=== PATIENT | female | born 1955 | race Caucasian/White ===

== ENCOUNTER 2019-08-31 08:14 | Observation (INO) | payer OTHER ==
[~2019-08-31] VITALS: Ht 167.6 cm; Wt 68.9 kg
[2019-08-31] MEDS ORDERED: SODIUM CHLORIDE 0.9% 1000ML 1,000 ML IV STA (08:32)
[2019-08-31 09:06] LABS: BASOPHILS % 0.8 % (0.0-1.0); EOSINOPHILS # (AUTO) 0.1 (0.0-0.4); EOSINOPHILS % 2.4 % (0.0-6.0); HEMATOCRIT 44.4 % (34.2-44.1); HEMOGLOBIN 14.6 g/dL (12.0-16.0); LYMPHOCYTES # (AUTO) 1.6 (1.0-3.2); LYMPHOCYTES % 29.9 % (18.0-39.1); MEAN CORPUSCULAR HEMOGLOBIN 31.1 pg (28-32); MEAN CORPUSCULAR HGB CONC 32.9 g/dL (31-35); MEAN CORPUSCULAR VOLUME 94.7 fL (81-99); MONOCYTES # (AUTO) 0.4 (0.2-0.8); MONOCYTES % 7.9 % (4.4-11.3); NEUTROPHILS # (AUTO) 3.1 (2.1-6.9); NEUTROPHILS % 58.6 % (38.7-80.0); PLATELET COUNT 274 x10e3/uL (140-360); RED BLOOD COUNT 4.69 x10e6/uL (3.6-5.1)
--- NOTE | 2019-08-31 09:15 | Diagnostic Imaging Report ---
EXAM: CHEST SINGLE (PORTABLE) DATE: 08/31/2019 8:45 AM INDICATION: Left-sided numbness COMPARISON: None FINDINGS: The trachea is midline. The lungs are symmetrically expanded without evidence for large focal consolidation, pneumothorax, or significant pleural effusion. The cardiomediastinal silhouette and pulmonary vasculature are within normal limits. No acute osseous abnormality is identified. The surrounding soft tissues are unremarkable. IMPRESSION: No acute cardiopulmonary process identified. Signed by: Dr. Boone Ibrahim MD on 08/31/2019 9:12 AM
--- NOTE | 2019-08-31 09:16 | Diagnostic Imaging Report ---
Exam: Head CT without contrast History: Numbness on left side Comparison studies: None Technique: Axial images were obtained from the skull base to the vertex. Coronal and sagittal images reconstructed from the axial data. Dose modulation, iterative reconstruction, and/or weight based adjustment of the mA/kV was utilized to reduce the radiation dose to as low as reasonably achievable. Radiation dose: Total DLP: 921.4 mGy*cm. Estimated effective dose: DLP x 0.015 Intravenous contrast: None Findings: Scalp: No abnormalities. Bones: No fractures, blastic or lytic lesions. Brain sulci: Appropriate for age. Ventricles: Normal in size and configuration. No hydrocephalus. Extra-axial spaces: No masses, no fluid collection. Parenchyma: Focal loss of carbajal-white differentiation along the right precentral gyrus (lateral to the hand knob) compatible with age-indeterminate nonhemorrhagic infarct. No mass or acute hemorrhage. Sellar/suprasellar region: No abnormalities. Craniocervical junction: Patent foramen magnum. No Chiari one malformation. Incidental findings: Atherosclerotic calcifications in the carotid siphons.. IMPRESSION: 1. Age-indeterminate nonhemorrhagic right precentral gyrus infarct, possibly acute or subacute in the context of recent left-sided localizing neurologic symptoms. Brain MRI may further evaluate. 2. No other acute intracranial abnormalities. Signed by: Dr. Logan Valdez M.D. on 08/31/2019 9:13 AM
[2019-08-31 09:30] LABS: ALANINE AMINOTRANSFERASE 22 IU/L (0-55); ALBUMIN 3.9 g/dL (3.5-5.0); ALBUMIN/GLOBULIN RATIO 1.1 (0.8-2.0); ALKALINE PHOSPHATASE 84 IU/L (40-150); ANION GAP 11.8 mmol/L (8-16); BLOOD UREA NITROGEN 6 mg/dL (7-26); BUN/CREATININE RATIO 8 (6-25); CALCIUM 9.3 mg/dL (8.4-10.2); CARBON DIOXIDE 27 mmol/L (22-29); CHLORIDE 106 mmol/L (98-107); CREATINE KINASE 65 IU/L (29-168); CREATININE, SERUM 0.78 mg/dL (0.57-1.11); EST GLOMERULAR FILTRATION RATE > 60 ML/MIN (60-); GLUCOSE 91 mg/dL (74-118); POTASSIUM 3.8 mmol/L (3.5-5.1); SODIUM 141 mmol/L (136-145)
[2019-08-31] MEDS ORDERED: ASPIRIN 81 MG CHEW TAB PO STA (09:59)
[2019-08-31 10:01] LABS: INR 0.83; PROTHROMBIN TIME 11.9 seconds (11.9-14.5)
[2019-08-31 10:02] LABS: PARTIAL THROMBOPLASTIN TIME 26.1 seconds (23.8-35.5)
--- NOTE | 2019-08-31 10:13 | Emergency Department Note ---
History of Present Illnes History of Present Illness Chief Complaint: Neurological History of Present Illness This is a 64 year old female PATIENT IN FROM HOME WITH COMPLAINTS OF LEFT SIDED FACIAL NUMBNESS AND WEAKNESS STARTING YESTERDAY, PATIENT ALSO STATES THAT SHE HAS HAD DIFFICULTY WRITING WITH LEFT HAND X 1 WEEK. PATIENT DENIES PAIN, APPEARS IN NO DISTRESS, RESP EVEN AND NONLABORED, AMBULATORY WITHOUT ASSISTANCE, LEFT SIDED WEAKNESS NOTED IN TRIAGE. Historian: Patient Arrival Mode: Car Bobbin Washer Required: No Onset (how long ago): week(s) (1 WEEK OF LEFT HAND WEAKNESS, FACIAL DROOP STARTED YESTERDAY) Location: LEFT SIDE Quality: WEAK/NUMB Radiation: Reports non-radiation Severity: moderate Onset quality: gradual Timing of current episode: constant Progression: worsening Chronicity: new Context: Denies recent illness Relieving factors: none Exacerbating factors: none Associated symptoms: Reports denies other symptoms Treatments prior to arrival: none Past Medical/Family History Physician Review I have reviewed the patient's past medical and family history. Any updates have been documented here. Past Medical History Recent Fever: No Clinical Suspicion of Infectio: No New/Unexplained Change in Ment: No Past Medical History: Migraines Past Surgical History: Cholecysctectomy, Hysterectomy Social History Smoking Cessation: Current every day smoker Counseling Performed: Yes Alcohol Use: None Any Illegal Drug Use: No TB Exposure/Symptoms: No Physically hurt or threatened: No Family History Family history of heart diseas: No Other Last Tetanus: AUGUST 2019 Any Pre-Existing Lines (PICC,: No Is patient up to date on immun: Yes Last Flu: UTD Last Pneumovax: UTD Review of Systems Review of Systems Constitutional: Reports no symptoms EENTM: Reports no symptoms Cardiovascular: Reports no symptoms Respiratory: Reports no symptoms Gastrointestinal: Reports no symptoms Genitourinary: Reports no symptoms Musculoskeletal: Reports no symptoms Integumentary: Reports no symptoms Neurological: Reports as per HPI Psychological: Reports no symptoms Endocrine: Reports no symptoms Hematological/Lymphatic: Reports no symptoms Physical Exam Related Data Allergies: Coded Allergies: Penicillins (Verified Allergy, Mild, RASH, 08/31/19) Triage Vital Signs Vital Signs Date Time Temp Pulse Resp B/P (MAP) Pulse Ox O2 Delivery O2 Flow Rate FiO2 08/31/19 08:23 97.7 88 18 143/89 100 Vital signs reviewed: Yes Physical Exam CONSTITUTIONAL Constitutional: Present well-developed, Present well-nourished HENT HENT: Present normocephalic, Present atraumatic, Present oropharynx clear/moist, Present nose normal HENT L/R: Present left ext ear normal, Present right ext ear normal EYES Eyes: Reports PERRL, Reports conjunctivae normal NECK Neck: Present ROM normal PULMONARY Pulmonary: Present effort normal, Present breath sounds normal CARDIOVASCULAR Cardiovascular: Present regular rhythm, Present heart sounds normal, Present capillary refill normal, Present normal rate GASTROINTESTINAL Abdominal: Present soft, Present nontender, Present bowel sounds normal GENITOURINARY Genitourinary: Present exam deferred SKIN Skin: Present warm, Present dry MUSCULOSKELETAL Musculoskeletal: Present ROM normal NEUROLOGICAL Neurological: Present alert, Present oriented x 3, Present sensory deficit (DECREASED LIGHT TOUGH TO FACE SPARING FOREHEAD, DECR LIGHT TOUCH LEFT ARM), Present weakness (LEFT FACIAL DROOP SPARING EYEBROW, LEFT UE 4/5 STR INCLUDING G RIP STRENGTH) PSYCHOLOGICAL Psychological: Present mood/affect normal, Present judgement normal Results Laboratory Result Diagram: 08/31/19 0836 08/31/19 0836 Laboratory Laboratory Tests Test 08/31/19 08:36 White Blood Count 5.32 x10e3/uL (4.8-10.8) Red Blood Count 4.69 x10e6/uL (3.6-5.1) Hemoglobin 14.6 g/dL (12.0-16.0) Hematocrit 44.4 % (34.2-44.1) Mean Corpuscular Volume 94.7 fL (81-99) Mean Corpuscular Hemoglobin 31.1 pg (28-32) Mean Corpuscular Hemoglobin Concent 32.9 g/dL (31-35) Red Cell Distribution Width 13.0 % (11.7-14.4) Platelet Count 274 x10e3/uL (140-360) Neutrophils (%) (Auto) 58.6 % (38.7-80.0) Lymphocytes (%) (Auto) 29.9 % (18.0-39.1) Monocytes (%) (Auto) 7.9 % (4.4-11.3) Eosinophils (%) (Auto) 2.4 % (0.0-6.0) Basophils (%) (Auto) 0.8 % (0.0-1.0) Neutrophils # (Auto) 3.1 (2.1-6.9) Lymphocytes # (Auto) 1.6 (1.0-3.2) Monocytes # (Auto) 0.4 (0.2-0.8) Eosinophils # (Auto) 0.1 (0.0-0.4) Basophils # (Auto) 0.0 (0.0-0.1) Absolute Immature Granulocyte (auto 0.02 x10e3/uL (0-0.1) Sodium Level 141 mmol/L (136-145) Potassium Level 3.8 mmol/L (3.5-5.1) Chloride Level 106 mmol/L (98-107) Carbon Dioxide Level 27 mmol/L (22-29) Anion Gap 11.8 mmol/L (8-16) Blood Urea Nitrogen 6 mg/dL (7-26) Creatinine 0.78 mg/dL (0.57-1.11) Estimat Glomerular Filtration Rate > 60 ML/MIN (60-) BUN/Creatinine Ratio 8 (6-25) Glucose Level 91 mg/dL (74-118) Calcium Level 9.3 mg/dL (8.4-10.2) Total Bilirubin 0.4 mg/dL (0.2-1.2) Aspartate Amino Transf (AST/SGOT) 19 IU/L (5-34) Alanine Aminotransferase (ALT/SGPT) 22 IU/L (0-55) Alkaline Phosphatase 84 IU/L (40-150) Creatine Kinase 65 IU/L (29-168) Total Protein 7.4 g/dL (6.5-8.1) Albumin 3.9 g/dL (3.5-5.0) Globulin 3.5 g/dL (2.3-3.5) Albumin/Globulin Ratio 1.1 (0.8-2.0) Lab results reviewed: Yes Imaging Imaging results reviewed: Yes Impressions CT BRAIN IMPRESSION: 1. Age-indeterminate nonhemorrhagic right precentral gyrus infarct, possibly acute or subacute in the context of recent left-sided localizing neurologic symptoms. Brain MRI may further evaluate. 2. No other acute intracranial abnormalities. Signed by: Dr. Logan Valdez M.D. on 08/31/2019 9:13 AM CXR IMPRESSION: No acute cardiopulmonary process identified. Signed by: Dr. Boone Ibrahim MD on 08/31/2019 9:12 AM Procedures 12 Lead ECG Interpretation ECG Interpretation : ECG: ECG 1 Bobbin Washer: Interpreted by ED physician Date: Aug 31, 2019 Time: 08:38 Rhythm: sinus rhythm Rate: normal (77) QRS axis: normal ST segments normal: Yes T waves normal: Yes Clinical Impression: normal ECG Assessment & Plan Medical Decision Making MDM LEFT FACE/ARM WEAKNESS SPARING FOREHEAD - CHECK CBC, CHEM, ECG, COAG'S, CXR, CT BRAIN - R/O CVA ISCHEMIC VS HEMORRHAGIC, DYSRHYTHMIA, STEMI/NSTEMI, ELECTROLYTE ABNL Reassessment Reassessment D/W DR MOURA FOR ADMISSION Assessment & Plan Final Impression: (1) CVA (cerebral vascular accident) Depart Disposition: ADMITTED Last Vital Signs Date Time Temp Pulse Resp B/P (MAP) Pulse Ox O2 Delivery O2 Flow Rate FiO2 08/31/19 08:23 97.7 88 18 143/89 100 Medications in the ED Sodium Chloride 1,000 ml @ 0 mls/hr Q0M STAT IV ; Start 08/31/19 at 08:32; Stop 08/31/19 at 08:36; Status DC LAZARO CONTRERAS MD Aug 31, 2019 10:13
[2019-08-31] MEDS ORDERED: ONDANSETRON HCL INJ 2MG/ML 2ML 2 MG/ML VIAL IV PRN (10:15)
[2019-08-31] MEDS ORDERED: SODIUM CHLORIDE 0.9% 1000ML 1,000 ML ONE (10:16)
[2019-08-31 12:59] VITALS: BP 125/99
[2019-08-31 13:14] VITALS: BP 125/99
[2019-08-31] MEDS ORDERED: ACETAMINOPHEN 325 MG TAB PO PRN (13:30)
[2019-08-31 14:11] VITALS: BP 125/79
--- NOTE | 2019-08-31 14:29 | Diagnostic Imaging Report ---
History: Left-sided numbness and weakness Comparison studies: Same-day head CT 08/31/2019 at 8:53 AM Technique: Sagittal and axial T2 FS, axial DWI, axial T2*GRE, axial T1 FLAIR and axial coronal T2 FLAIR. Intravenous contrast: None Findings: Scalp: Normal in signal. No masses. Bone marrow: Normal in signal intensity. Brain sulci: Appropriate for age. Ventricles: Normal in size. No hydrocephalus. Extra axial spaces: No mass, no fluid collection. Parenchyma: Small foci of acute cortical and subcortical ischemia in the right frontal lobe which involve the right precentral, right middle frontal gyri and adjacent right frontal soriano radiata white matter in the distal right MCA territory and along the right internal MCA border zone. Increased T2 FLAIR and T1 hyperintense signal within the adjacent right MCA vessels may be related to slow flow thrombi within small distal MCA branches. No mass or hemorrhage. A few small T2 FLAIR hyperintense foci in the supratentorial white matter are nonspecific but are most compatible with chronic microvascular ischemic changes. Suprasellar region: No abnormalities. Craniocervical junction: Patent foramen magnum. No Chiari malformation. Vessels: Normal flow-voids in the arteries and sinuses. IMPRESSION: 1. Acute nonhemorrhagic foci of ischemia in the right frontal lobe with involvement of the right precentral gyrus in the distal right MCA territory and right MCA internal border zone. 2. Minimal chronic microvascular ischemic changes. Recommend neck and intracranial MRA or CTA to further evaluate the vasculature. Signed by: Dr. Logan Valdez M.D. on 08/31/2019 2:26 PM
[2019-08-31 15:28] VITALS: BP 130/81
--- NOTE | 2019-08-31 16:07 | History and Physical ---
PCP: Dr. Patterson at [facility]. CHIEF COMPLAINT: Left-sided weakness and facial numbness. HISTORY OF PRESENT ILLNESS: This is a 64-year-old female with past medical history of migraine headaches and CVA, who presented to the ER with complaints of left hand weakness for about one week and reported having left facial numbness yesterday. She presented today with increased weakness and slurred speech. She denies any chest pain, shortness of breath, vision changes, altered mental status, gait imbalance, nausea, vomiting, or headache. She reports had similar episode due to migraine headache years ago, but not this severe. In the ER, CT brain showed age indeterminate nonhemorrhagic right precentral gyrus infarct, possibly acute or subacute in the context of recent left-sided localizing neurologic symptoms. MRI for further evaluation. Chest x-ray was unremarkable. She was admitted for further evaluation. PAST MEDICAL HISTORY: 1. Migraine headache. 2. Questionable CVA. PAST SURGICAL HISTORY: She reports hysterectomy, cholecystectomy, and left elbow tendon repair. FAMILY MEDICAL HISTORY: She reports sister has CVA and siblings with heart disease and diabetes. SOCIAL HISTORY: She reports smokes about four cigarettes a day, but she denies any alcohol or illicit drug use. ALLERGIES: SHE IS ALLERGIC TO PENICILLIN. REVIEW OF SYSTEMS: A 12-system reviewed and negative except as noted in HPI. PHYSICAL EXAMINATION: VITAL SIGNS: Temperature 98.1, pulse is 73, respirations 20, blood pressure 125/79, and pulse ox is 100% on room air. GENERAL: No acute distress. HEENT: Normocephalic and atraumatic. NECK: Supple. LUNGS: Clear to auscultation. CARDIOVASCULAR: Regular rate and rhythm. GI: Soft and nontender. NEUROLOGIC: Alert, awake, and oriented x3. Left hand weakness noted. MUSCULOSKELETAL: Moves all extremities. Left upper extremity weakness, +3. PSYCH: Calm. LABORATORY DATA: WBC 5.32, hemoglobin 14.6, hematocrit 44.4, and platelet 274. Sodium 141, potassium 3.8, CO2 27, and creatinine 0.78. Estimated GFR is greater than 60. AST 19, ALT 22, and creatine kinase 65. Troponin 0.001. PT 11.9, INR 0.83, and APTT 26.1. Coronavirus PCR is pending. IMAGING: CT brain shows age indeterminate nonhemorrhagic right precentral gyrus infarct, possibly acute or subacute. Chest x-ray unremarkable. Pending MRI and carotid Dopplers. IMPRESSION: 1. Rule out cerebrovascular accident with left-sided numbness and weakness. CT noted with subacute infarct. MRI pending results. We will check lipid panel, start aspirin and statin. No gait imbalance noted. We will consult Neurology for further evaluation. Echo and carotid Doppler pending. 2. History of migraine headaches. Will usually gets Botox every 3 months. We will start Tylenol as needed for now. 3. Deep vein thrombosis prophylaxis. SCDs. Dictated by JOON Colon Margaretching Holden Reynoso MD MY/MODL /[id number]
[2019-08-31 16:21] LABS: CREATINE KINASE 62 IU/L (29-168)
[2019-08-31] MEDS ORDERED: SODIUM CHLORIDE 0.9% 100 ML ONE (17:13)
[2019-08-31] MEDS ORDERED: IOPAMIDOL 370 MG/ML 200 ML INFUS..BTL INJ ONE (17:13)
--- NOTE | 2019-08-31 17:30 | Diagnostic Imaging Report ---
History:Left facial numbness and weakness, Comparison studies: None Technique: Axial images were obtained from the thoracic inlet. Coronal and sagittal images reconstructed from the axial data. Dose modulation, iterative reconstruction, and/or weight based adjustment of the mA/kV was utilized to reduce the radiation dose to as low as reasonably achievable. Intravenous contrast: 100 cc of Omnipaque 300. Findings: Aortic arch and major vessels: Patent. No abnormalities. Common carotid arteries: Patent. No abnormalities. Carotid bulbs: No abnormalities on the right. Punctate nonstenosing calcified plaque on the left Internal carotid arteries: Nonstenosing calcified plaques in the carotid siphons. Otherwise, no abnormalities. Patent anterior and middle cerebral arteries. Vertebral arteries: Patent. No abnormalities. Basilar artery: Patent. No abnormalities. Posterior cerebral arteries: Patent. No abnormalities. Anatomical variants: Acom: Patent . Pcoms: Patent. Vertebral arteries: Left dominant IMPRESSION: 1. Nonstenosing calcified plaques in the left carotid bulb and carotid siphons. 2. Otherwise, no cervical or intracranial vascular abnormalities. 3. Specifically, no major vessel occlusions. Signed by: Dr. Anibal Gorman M.D. on 08/31/2019 5:26 PM
--- NOTE | 2019-08-31 19:41 | NUR ---
CALLED LISTED NUMBER FOR [facility], SPOKE TO MINNIE DIAZ, HE STATED, "OKAY, I WILL SEE HER TOMORROW."
[2019-08-31 20:00] VITALS: BP 109/71
[2019-08-31] MEDS ORDERED: ATORVASTATIN 20 MG TAB PO SCH (21:00)
[2019-09-01] VITALS: BP 115/70
[2019-09-01 01:24] LABS: CHOL/HDL RATIO 5.9 (3.0-3.6)
[2019-09-01 01:54] LABS: CREATINE KINASE 66 IU/L (29-168)
[2019-09-01] MEDS ORDERED: BOTOX100 UNIT (03:43)
[2019-09-01 04:00] VITALS: BP 103/63
[2019-09-01 05:10] LABS: BASOPHILS # (AUTO) 0.1 (0.0-0.1); BASOPHILS % 0.8 % (0.0-1.0); EOSINOPHILS # (AUTO) 0.2 (0.0-0.4); EOSINOPHILS % 3.1 % (0.0-6.0); HEMATOCRIT 40.4 % (34.2-44.1); HEMOGLOBIN 13.3 g/dL (12.0-16.0); LYMPHOCYTES # (AUTO) 2.1 (1.0-3.2); MEAN CORPUSCULAR HEMOGLOBIN 31.2 pg (28-32); MEAN CORPUSCULAR HGB CONC 32.9 g/dL (31-35); MEAN CORPUSCULAR VOLUME 94.8 fL (81-99); MONOCYTES # (AUTO) 0.5 (0.2-0.8); MONOCYTES % 8.2 % (4.4-11.3); NEUTROPHILS # (AUTO) 3.3 (2.1-6.9); NEUTROPHILS % 53.7 % (38.7-80.0); PLATELET COUNT 232 x10e3/uL (140-360); RED BLOOD COUNT 4.26 x10e6/uL (3.6-5.1); RED CELL DISTRIBUTION WIDTH 12.7 % (11.7-14.4)
[2019-09-01 05:52] LABS: ALANINE AMINOTRANSFERASE 18 IU/L (0-55); ALBUMIN 3.4 g/dL (3.5-5.0); ALBUMIN/GLOBULIN RATIO 1.2 (0.8-2.0); ALKALINE PHOSPHATASE 65 IU/L (40-150); ANION GAP 12.2 mmol/L (8-16); BLOOD UREA NITROGEN 7 mg/dL (7-26); BUN/CREATININE RATIO 10 (6-25); CALCIUM 9.3 mg/dL (8.4-10.2); CARBON DIOXIDE 24 mmol/L (22-29); CHLORIDE 106 mmol/L (98-107); CREATININE, SERUM 0.67 mg/dL (0.57-1.11); EST GLOMERULAR FILTRATION RATE > 60 ML/MIN (60-); GLUCOSE 92 mg/dL (74-118); POTASSIUM 4.2 mmol/L (3.5-5.1); SODIUM 138 mmol/L (136-145)
--- NOTE | 2019-09-01 07:03 | NUR ---
REPORT GIVEN TO DAYSHIFT NURSE. RESTING IN BED. AAOX3. NO SIGNS IV INFILTRATION. BED LOCKED AND IN LOW POSITION. CALL LIGHT WITHIN REACH.
[2019-09-01 07:06] VITALS: BP 92/64
[2019-09-01 07:28] VITALS: BP 92/64
--- NOTE | 2019-09-01 07:31 | NUR ---
PT IN BED SLEEPING NO S/S DISCOMFORT,OR DISTRESS
[2019-09-01 08:14] LABS: CREATINE KINASE MB 0.9 ng/mL (0-5.0)
[2019-09-01] MEDS ORDERED: ASPIRIN 81 MG ENTERIC COATED PO SCH (09:00)
[2019-09-01 11:31] VITALS: BP 96/67
[2019-09-01] MEDS ORDERED: ASPIRIN ENTERI325 MG PO (14:26)
[2019-09-01] MEDS ORDERED: LIPITOR20 MG PO (14:26)
[2019-09-01 15:33] VITALS: BP 114/73
--- NOTE | 2019-09-01 22:31 | Discharge Summary ---
PRIMARY CARE PHYSICIAN: Dr. Freire at [facility]. FINAL DISCHARGE DIAGNOSES: 1. Acute cerebrovascular accident with left-sided numbness. 2. High cholesterol. 3. History of migraine headaches. CONSULTANTS: Dr. Grace with Neurology. PROCEDURES: None. HISTORY: Per HPI. HOSPITAL COURSE: Ms. Jaeger is a 64-year-old female, who presented to the ER with complaints of left facial numbness and left hand weakness. CT brain showed subacute infarct. MRI of the brain showed acute nonhemorrhagic ischemia in the right frontal lobe with involvement of the right paracentral gyrus in the distal right MCA territory and right MCA internal border zone. Minimal chronic microvascular ischemic changes also showed. CTA of head and neck showed calcified flakes in the left carotid bulb and carotid siphon, otherwise no cervical or intracranial vascular abnormalities, specifically no major vessel occlusion . Neurology, Dr. Grace was consulted. No further recommendation. Currently, her symptoms have resolved. Lipid panel showed LDL of 141, HDL 33, cholesterol . She was started on statin. Currently, her symptoms have resolved, we will discharge home on aspirin and statin. She will make an appointment with her neurologist, Dr. Gonzales this week for her migraine Botox injection and CVA re-evaluation. PHYSICAL EXAMINATION: VITAL SIGNS: Temperature 98.8, pulse is 75, respirations 20, blood pressure 114/73. GENERAL: No acute distress. HEENT: Normocephalic and atraumatic. LUNGS: Clear to auscultation. CARDIOVASCULAR: Regular rate and rhythm. GI: Soft and nontender. NEUROLOGIC: Alert, awake, and oriented x3. No focal weakness. MUSCULOSKELETAL: Moves all extremities. PSYCH: Calm. CONDITION AT DISCHARGE: Improved and stable. DISCHARGE MEDICATIONS: Please see medication reconciliation list. FOLLOWUP: Follow up with , her neurologist next week and PCP in 1 to 2 weeks. TIME SPENT: Total time of discharge is 32 minutes. Dictated by JOON Colon Shirley Reynoso MD MY/MODL /[id number] cc: [facility]
--- NOTE | 2019-09-01 22:56 | Consultation ---
DATE OF CONSULTATION: 09/01/2019 Neurology Consultation HISTORY OF PRESENT ILLNESS: I am seeing the patient for left facial weakness, came in yesterday after developing migraine and then developed left facial weakness, numbness and left arm paresthesia and numbness as well. Symptoms lasted several hours. She came in after the tPA window and was not given tPA. She has a history of migraines and hypertension. Denies tobacco or alcohol use. Symptoms are still present the next day, however, they seem to be improving. SOCIAL HISTORY: Denies tobacco, alcohol, or drugs. She does endorse hypertension and migraines as a history for which she gets Botox for. Last time, she had Botox several weeks ago. PHYSICAL EXAMINATION: VITAL SIGNS: She is afebrile. Temperature is 98.8, blood pressure 147/68, heart rate 72 and regular. She is wearing telemetry. HEENT: Extraocular muscles intact. Face is, left upper motor neuron facial weakness. Speech is, however, clear. There is no drooling. There is no dysarthria. There is no nuchal rigidity. CARDIOVASCULAR: Regular rate and rhythm. PULMONARY: Clear to auscultation. ABDOMEN: Soft and nontender with no guarding. NEUROLOGIC: Strength in the bilateral upper extremities is 5/5 with no drift. Sensory is grossly intact. Desktop Support Specialist is 5/5. Reflexes 2/4. Toes are mute. Strength in the bilateral lower extremities are 5/5 bilaterally. She is able to stand on her toes. No ataxia or dysdiadochokinesia noted. ASSESSMENT AND PLAN: The patient comes to my attention for stroke was seen on MRI. CT angiogram of head and neck are normal. Echocardiogram is pending. There is no evidence of high-grade thrombosis. No evidence of arrhythmia. My recommendation is to go home on aspirin and statin. Her lipid panel was elevated, LDL. So recommendation to go home on aspirin 325 and statin. Outpatient followup with Neurology. For migraine prevention, recommendations to start initiate preventive therapy given that she has frequent migraines and that does contribute her for vascular disease. MINNIE CARMONA MD RR/MODL /[id number]
--- OUTSIDE RECORDS SUMMARY | 2019-10-07 00:28 | XMS REPORT | Continuity of Care Document ---
Author Author [facility] t Organization [facility] Address [address] [place] [address] Phone Unavailable Care Team Providers Care Home Care Rn Name Role Phone Roger VEGA PCP Matt MOURA Attphys Unavailable Matt MOURA Admphys Unavailable Payers Payer Name Policy Type Policy Number Effective Date Expiration Date Frankie Ramirez [facility] [id number] 2011 00:00:00 [facility] Cdc Review Covid19 [id number] [facility] Problems Condition Name Condition Details Condition Category Status Onset Date Resolution Date Last Treatment Date Treating Clinician Comments Source Cerebrovascular accident (CVA) Problem Active [facility] Allergies, Adverse Reactions, Alerts Allergy Name Allergy Type Status Severity Reaction(s) Onset Date Inacti ve Date Treating Clinician Comments Source Penicillin Allergy to substance Active Mild RASH 2019-08-31 00:00:00 [facility] Social History Social Habit Start Date Stop Date Quantity Comments Source Sex Ass[birth year] At 1955 00:00:00 1955 00:00:00 Female [facility] Medications Ordered Medication Name Filled Medication Name Start Date Stop Da te Current Medication? Ordering Clinician Indication Dosage Frequency Signature (SIG) Comments Components Source Aspirin (Aspirin Enteric Coated) 325 Mg TABEC Aspirin (Aspirin Enteric Coated) 325 Mg TABEC 2019-09-01 14:26:00 Yes 325 Daily [facility] Atorvastatin Calcium (Lipitor) 20 Mg TABLET Atorvastat in Calcium (Lipitor) 20 Mg TABLET 2019-09-01 14:26:00 Yes 20 Bedtime [facility] Botulinum Toxin Type A (Botox) 100 Unit VIAL Botulinum Toxin Type A (Botox) 100 Unit VIAL Yes Q 3 Months for Migraines [facility] Vital Signs Vital Name Observation Time Observation Value Comments Source Body Temperature 2019-09-01 15:33:00 98.8 [degF] [facility] Weight 2019-08-31 19:01:00 152 [lb_av] [facility] BMI (Body Mass Index) 2019-08-31 19:01:00 24.5 kg/m2 [facility] Procedures Procedure Date / Time Performed Performing Clinician [facility] e Computed tomography of brain without radiopaque contrast 2019-08 00:00:00 [facility] Magnetic resonance imaging of brain without contrast 2019-08-31 00:00:[address] [facility] [address] angiography of neck 2019-08-31 00:00:00 [facility] Computed tomography angiography of brain 2019-08-31 00:00:00 [facility] Plan of Care Planned Activity Planned Date Details Comments Source Instructions Headache - Migraine (Adult) [facility] Encounters Start Date/Time End Date/Time Encounter Type Admission Type [facility] Facility Care Department Encounter ID Source 2019-08-31 10:13:00 2019-09-01 15:45:00 Discharged Inpatient (obs) 1 ADELITA MOURA [facility] [id number] I [facility] Results Test Description Test Time Test Comments Results Result Comments Source Blood leukocytes automated count (number/volume) 2019-09-01 05:00:00 Test Item White Blood Count (test code = 6690-2) 6.21 4.8-10.8 [facility] automated count (number/volume)2019-09-01 05:00:00* Test Item Value Reference Range Interpretation Comments Red Blood Count (test code = 789-8) 4.26 3.6-5.1 [facility] hemoglobin measurement (moles/volume)2019-09-01 05:00:00* Test Item Value Reference Range Interpretation Comments Hemoglobin (test code = 37196-0) 13.3 12.0-16.0 [facility] CenterAutomated blood hematocrit (volume fraction)2019-09-01 05:00:00* Test Item Value Reference Range Interpretation Comments Hematocrit (test code = 4544-3) 40.4 34.2-44.1 [facility] CenterAutom[facility] erythrocyte mean corpuscular jkotix6651-52-06 05:00:00* Test Item Value Reference Range Interpretation Comments Mean Corpuscular Volume (test code = 787-2) 94.8 81-99 [facility] CenterAutom[facility] erythrocyte mean corpuscular hemoglobin (mass per erythrocyte)2019-09-01 05:00:00* Test Item Value Reference Range Interpretation Comments Mean Corpuscular Hemoglobin (test code = 785-6) 31.2 28-32 [facility] CenterAutomated erythrocyte mean corpuscular hemoglobin concentration measurement (mass/volume)2019-09-01 05:00:00* Test Item Value Reference Range Interpretation Comments Mean Corpuscular Hemoglobin Concent (test code = 786-4) 32.9 31-35 [facility] CenterRDW BwlVn-Zxa9511-64-25 05:00:00* Test Item Value Reference Range Interpretation Comments Red Cell Distribution Width (test code = 87681-2) 12.7 11.7 -14.4 [facility] CenterAutom[facility] blood platelet count (count/volume)2019-09-01 05:00:00* Test Item Value Reference Range Interpretation Comments Platelet Count (test code = 777-3) 232 140-360 [facility] CenterAutom[facility] blood segmented neutrophil count as percentage of total geifmafsxs1449-60-25 05:00:00* Test Item Value Reference Range Interpretation Comments Neutrophils (%) (Auto) (test code = 92805-0) 53.7 38.7-80.0 [facility] CenterAutomated blood lymphocyte count as percentage ot total nquyntbrnu8419-42-27 05:00:00* Test Item Value Reference Range Interpretation Comments Lymphocytes (%) (Auto) (test code = 736-9) 34.0 18.0-39.1 [facility] CenterAutom[facility] blood monocyte count as percentage of total qpaqnsfvfn6796-22-17 05:00:00* Test Item Value Reference Range Interpretation Comments Monocytes (%) (Auto) (test code = 5905-5) 8.2 4.4-11.3 [facility] CenterAutom[facility] blood eosinophil count as percentage of total xctgpimikx3386-18-61 05:00:00* Test Item Value Reference Range Interpretation Comments Eosinophils (%) (Auto) (test code = 713-8) 3.1 0.0-6.0 [facility] CenterAutom[facility] blood basophil count as percentage of total dyoikvnqav9629-68-89 05:00:00* Test Item Value Reference Range Interpretation Comments Basophils (%) (Auto) (test code = 706-2) 0.8 0.0-1.0 [facility] CenterFluoroscopic procedure less than one hour ugghotfz9619-28-78 05:00:00* Test Item Value Reference Range Interpretation Comments IM GRANULOCYTES % (test code = IM GRANULOCYTES %) 0.2 0.0- 1.0 [facility] CenterAutom[facility] blood neutrophil count 2019-09-01 05:00:00* Test Item Value Reference Range Interpretation Comments Neutrophils # (Auto) (test code = 751-8) 3.3 2.1-6.9 [facility] CenterBlood lymphocytes count (number/volume) 2019-09-01 05:00:00* Test Item Value Reference Range Interpretation Comments Lymphocytes # (Auto) (test code = 24272-6) 2.1 1.0-3.2 [facility] CenterBlood monocytes automated count (number/volume)2019-09-01 05:00:00* Test Item Value Reference Range Interpretation Comments Monocytes # (Auto) (test code = 742-7) 0.5 0.2-0.8 [facility] CenterAutomated blood eosinophil count 2019-09-01 05:00:00* Test Item Value Reference Range Interpretation Comments Eosinophils # (Auto) (test code = 711-2) 0.2 0.0-0.4 [facility] CenterAutomated blood basophil count (count/volume)2019-09-01 05:00:00* Test Item Value Reference Range Interpretation Comments Basophils # (Auto) (test code = 704-7) 0.1 0.0-0.1 [facility] CenterFluoroscopic procedure less than one hour ajpvxkyc5670-16-55 05:00:00* Test Item Value Reference Range Interpretation Comments Absolute Immature Granulocyte (auto (salbador t code = Absolute Immature Granulocyte (auto) 0.01 0-0.1 [facility] sodium measurement (moles/volume)2019-09-01 05:00:00* Test Item Value Reference Range Interpretation Comments Sodium Level (test code = 2951-2) 138 136-145 [facility] plasma potassium measurement (moles/volume)2019-09-01 05:00:00* Test Item Value Reference Range Interpretation Comments Potassium Level (test code = 2823-3) 4.2 3.5-5.1 [facility] plasma chloride measurement (moles/volume)2019-09-01 05:00:00* Test Item Value Reference Range Interpretation Comments Chloride Level (test code = 2075-0) 106 98-107 [facility] plasma carbon dioxide, total measurement (moles/volume)2019-09-01 05:00:00* Test Item Value Reference Range Interpretation Comments Carbon Dioxide Level (test code = 2028-9) 24 22-29 [facility] plasma anion nap4112-87-01 05:00:00* Test Item Value Reference Range Interpretation Comments Anion Gap (test code = 26117-3) 12.2 8-16 [facility] plasma urea nitrogen measurement (mass/volume)2019-09-01 05:00:00* Test Item Value Reference Range Interpretation Comments Blood Urea Nitrogen (test code = 3094-0) 7 7-26 [facility] plasma creatinine measurement (mass/volume)2019-09-01 05:00:00* Test Item Value Reference Range Interpretation Comments Creatinine (test code = 2160-0) 0.67 0.57-1.11 [facility] plasma urea nitrogen/creatinine mass sdigu9408-46-78 05:00:00* Test Item Value Reference Range Interpretation Comments BUN/Creatinine Ratio (test code = 3097-3) 10 6-25 [facility] CenterEstimated glomerular filtration rate (GFR) irfidfkgkcrdz4408-38-66 05:00:00* Test Item Value Reference Range Interpretation Comments Estimat Glomerular Filtration Rate (test code = 797535144) > 60 >60 Ranges were taken from the National Kidney Disease Education Program and the [facility] literature.Reference ranges:60 or greater: Bxkzbx61-58 ( for 3 consecutive months): Chronic kidney disease 15 or less: Kidney failureSaint Camillus Medical CenterGlucose etykbwfmqfi9422-92-66 05:00:00* Test Item Value Reference Range Interpretation Comments Glucose Level (test code = JDD2551) 92 74-118 [facility] plasma calcium measurement (mass/volume)2019-09-01 05:00:00* Test Item Value Reference Range Interpretation Comments Calcium Level (test code = 00287-3) 9.3 8.4-10.2 [facility] plasma total bilirubin measurement (mass/volume)2019-09-01 05:00:00* Test Item Value Reference Range Interpretation Comments Total Bilirubin (test code = 1975-2) 0.5 0.2-1.2 [facility] CenterFluoroscopic procedure less than one hour xqvpgggp3155-43-10 05:00:00* Test Item Value Reference Range Interpretation Comments Aspartate Amino Transf (AST/SGOT) (test code = Aspartate Amino Transf (AST/SGOT)) 17 5-34 [facility] or plasma alanine aminotransferase measurement (enzymatic activity/volume)2019-09-01 05:00:00* Test Item Value Reference Range Interpretation Comments Alanine Aminotransferase (ALT/SGPT) (test code = 1742-6) 18 0-55 [facility] plasma protein measurement (mass/volume)2019-09-01 05:00:00* Test Item Value Reference Range Interpretation Comments Total Protein (test code = 2885-2) 6.3 6.5-8.1 [facility] plasma albumin measurement (mass/volume)2019-09-01 05:00:00* Test Item Value Reference Range Interpretation Comments Albumin (test code = 1751-7) 3.4 3.5-5.0 [facility] CenterPlasma globulin measurement (mass/volume) 2019-09-01 05:00:00* Test Item Value Reference Range Interpretation Comments Globulin (test code = 73494-6) 2.9 2.3-3.5 [facility] plasma albumin/globulin mass jtefx2171-11-00 05:00:00* Test Item Value Reference Range Interpretation Comments Albumin/Globulin Ratio (test code = 1759-0) 1.2 0.8-2.0 [facility] plasma alkaline phosphatase measurement (enzymatic activity/volume)2019-09-01 05:00:00* Test Item Value Reference Range Interpretation Comments Alkaline Phosphatase (test code = 6768-6) 65 40-150 [facility] or plasma creatine kinase measurement (enzymatic activity/volume)2019-09-01 05:00:00* Test Item Value Reference Range Interpretation Comments Creatine Kinase (test code = 2157-6) 60 29-168 [facility] or plasma creatine kinase MB measurement (mass/volume)2019-09-01 05:00:00* Test Item Value Reference Range Interpretation Comments Creatine Kinase MB (test code = 39460-2) 0.90 0-5.0 [facility] CenterTroponin I measurement by highly sensitive enzyme bdfzffvfbpp5076-30-29 05:00:00* Test Item Value Reference Range Interpretation Comments Troponin I (test code = 58509-6) 0.138 0-0.300 [facility] or plasma triglyceride measurement (mass/volume)2019-09-01 00:58:00* Test Item Value Reference Range Interpretation Comments Triglycerides Level (test code = 2571-8) 109 0-149 [facility] or plasma cholesterol measurement (mass/volume)2019-09-01 00:58:00* Test Item Value Reference Range Interpretation Comments Cholesterol Level (test code = 2093-3) 196 0-199 Less than 200 mg/dL Low Jdtf821 - 239 mg/dL Borderline Zszl559 m g/dl and greater High Risk [facility] plasma cholesterol in LDL measurement (mass/volume) 2019-09-01 00:58:00* Test Item Value Reference Range Interpretation Comments LDL Cholesterol (test code = 2089-1) 141 60-130 [facility] plasma cholesterol in HDL measurement (mass/volume)2019-09-01 00:58:00* Test Item Value Reference Range Interpretation Comments HDL Cholesterol (test code = 2085-9) 33 40-60 [facility]er[facility] or plasma total cholesterol/cholesterol in HDL mass bmiun3251-97-09 00:58:00* Test Item Value Reference Range Interpretation Comments Cholesterol/HDL Ratio (test code = 9830-1) 5.9 3.0-3.6 [facility] CenterCTA GSLX8247-14-20 17:21:00 [facility] [address] [place] [address] Patient Name: ADRIANE RECINOS MR #: [id number] : 1955 Age/Sex: 64/F Req #: [id number] Adm Physician: ADELITA MOURA MD Ordered by: MISSAEL SANTA [employer] Report #: [id number] Location: MED/SURG Room/Bed: [facility] Procedure: [id number] CT/CTA NECK Ex am Date: 08/31/19 Exam Time: 1640 REPORT STATUS: Signed History:Left facial numbness and weakness, Comparison studies: None Technique: Axial images w ere obtained from the thoracic inlet. Coronal and sagittal images reconstructe d from the axial data. Dose modulation, iterative reconstruction, and/or weigh t based adjustment of the mA/kV was utilized to reduce the radiation dose to as low as reasonably achievable. Intravenous contrast: 100 cc of Omnipaq ue 300. Findings: Aortic arch and major vessels: Patent. No abnormal ities. Common carotid arteries: Patent. No abnormalities. Carotid bu lbs: No abnormalities on the right. Punctate nonstenosing calcified plaque o n the left Internal carotid arteries: Nonstenosing calcified plaques in t he carotid siphons. Otherwise, no abnormalities. Patent anterior and middle ce rebral arteries. Vertebral arteries: Patent. No abnormalities. Basil ar artery: Patent. No abnormalities. Posterior cerebral arteries: Paten t. No abnormalities. Anatomical variants: Acom: Patent . Pcoms: Patent. Vertebral arteries: Left dominant IMPRESSION: 1. Nonstenosing calc ified plaques in the left carotid bulb and carotid siphons. 2. Otherwise, n o cervical or intracranial vascular abnormalities. 3. Specifically, no major vessel occlusions. Signed by: Dr. Anibal Gorman M.D. on 08/31/2019 5:2 6 PM Dictated By: ANIBAL GORMAN MD, MD 25 Transcribed By: DESMOND on 08/31/191725 COPY TO: MISSAEL SANTA NP CTA [id number] 17:21:00 [place] [address] Patient Name: ADRIANE RECINOS MR #: [id number] : 1955 Age/Sex: 64/F Req #: [id number] Adm Physician: ADELITA MOURA MD Ordered by: MISSAEL SANTA NP Report #: [id number] Location: MED/SURG Room/Bed: [facility] Procedure: [id number] CT/CTA BRAIN E xam Date: 08/31/19 Exam Time: 1640 REPORT STATUS: Signed History:Left facial numbness and weakness, Comparison studies: None Technique: Axial images were obtained from the thoracic inlet. Coronal and sagittal images reconstruct ed from the axial data. Dose modulation, iterative reconstruction, and/or weig ht based adjustment of the mA/kV was utilized to reduce the radiation dose to as low as reasonably achievable. Intravenous contrast: 100 cc of Omnipa que 300. Findings: Aortic arch and major vessels: Patent. No abnorma lities. Common carotid arteries: Patent. No abnormalities. Carotid b ulbs: No abnormalities on the right. Punctate nonstenosing calcified plaque on the left Internal carotid arteries: Nonstenosing calcified plaques in the carotid siphons. Otherwise, no abnormalities. Patent anterior and middle c erebral arteries. Vertebral arteries: Patent. No abnormalities. Basi lar artery: Patent. No abnormalities. Posterior cerebral arteries: Brunner nt. No abnormalities. Anatomical variants: Acom: Patent . Pcoms: Patent . Vertebral arteries: Left dominant IMPRESSION: 1. Nonstenosing kayla cified plaques in the left carotid bulb and carotid siphons. 2. Otherwise, no cervical or intracranial vascular abnormalities. 3. Specifically, no major vessel occlusions. Signed by: Dr. Anibal Gorman M.D. on 08/31/2019 5: 26 PM Dictated By: ANIBAL GORMAN MD, MD 25 Transcribed By: DESMOND on 08/31/191725 COPY TO: MISSAEL SANTA NP MRI BRAIN [id number] 14:18:00 [place] [address] Patient Name: ADRIANE RECINOS MR #: [id number] : 1955 Age/Sex: 64/F Req #: [id number] Adm Physician: ADELITA MOURA MD Ordered by: LAZARO CONTRERAS MD [facility] #: [id number] Location: MED/SURG Room/Bed : 108 Procedure: [id number] MRI/MRI BRAIN WO Exam Date: Exam Time: REPORT STATUS: Signed History: Left-sided numbness and weak ness Comparison studies: Same-day head CT 08/31/2019 at 8:53 AM Technique: Sagittal and axial T2 FS, axial DWI, axial T2*GRE, axial T1 FLAIR and axial coronal T2 FLAIR. Intravenous contrast: None Findings: Scalp: Norm al in signal. No masses. Bone marrow: Normal in signal intensity. Brain s ulci: Appropriate for age. Ventricles: Normal in size. No hydrocephalus. Ext ra axial spaces: No mass, no fluid collection. Parenchyma: Small foci of acute cortical and subcortical ischemia in the right frontal lobe which involv e the right precentral, right middle frontal gyri and adjacent right frontal c kevin radiata white matter in the distal right MCA territory and along the rig ht internal MCA border zone. Increased T2 FLAIR and T1 hyperintense signal wit hin the adjacent right MCA vessels may be related to slow flow thrombi within small distal MCA branches. No mass or hemorrhage. A few small T2 FLAIR hyp erintense foci in the supratentorial white matter are nonspecific but are most compatible with chronic microvascular ischemic changes. Suprasellar darrin on: No abnormalities. Craniocervical junction: Patent foramen magnum. No Shaggy ri malformation. Vessels: Normal flow-voids in the arteries and sinuses. IMPRESSION: 1. Acute nonhemorrhagic foci of ischemia in the right frontal lobe with involvement of the right precentral gyrus in the distal right MCA te rritory and right MCA internal border zone. 2. Minimal chronic microvascula r ischemic changes. Recommend neck and intracranial MRA or CTA to further e valuate the vasculature. Signed by: Dr. Brock Valdez M.D. on 08/31/2019 2: 26 PM Dictated By: BROCK VALDEZ MD 25 Transcribed By: DESMOND on 08/31/191425 COPY TO: LAZARO CONTRERAS MD CHEST SINGLE (PORTABLE)2019-08-31 09:11:00 [facility] [address] [place], [place] [address] Patient Name: ADRIANE RECINOS MR #: [id number] : 1955 Age/Sex: 64/F Req #: [id number] Adm Physician: Ordered by: LAZARO CONTRERAS MD Report #: [id number] Location: ER Room/Bed: Procedure: [id number] DX/CHEST SINGLE (PORTABLE) Exam Date: 08/31/19 Exam Time: 0845 REPORT STATUS: Signed EXAM: CHEST SI NGLE (PORTABLE) DATE: 08/31/2019 8:45 AM INDICATION: Left-sided numbn ess COMPARISON: None FINDINGS: The trachea is midline. The lungs ar e symmetrically expanded without evidence for large focal consolidation, pneum othorax, or significant pleural effusion. The cardiomediastinal silhouette and pulmonary vasculature are within normal limits. No acute osseous abnormali ty is identified. The surrounding soft tissues are unremarkable. IMPRE SSION: No acute cardiopulmonary process identified. Signed by: Dr. Sue Ibrahim MD on 08/31/2019 9:12 AM Dictated By: EDDIE IBRAHIM MD Electron ically Signed By: EDDIE IBRAHIM MD on 08/31/19911 Transcribed By: DESMOND on 0 08/31/19911 COPY TO: LAZARO CONTRERAS MD CT BRAIN [id number] 09:06:00 [facility] [address] [place] [id number] Patient Name: ADRIANE RECINOS MR #: [id number] : 1955 Age/Sex: 64/F [facility] #: [id number] Req #: [id number] [facility] Physician: Ordered by: LAZARO CONTRERAS MD Report #: [id number] Location: ER Room/Bed: Procedure: [id number] CT/CT BRAIN WO Exam Date: 08/31/19 Exam Time: 0840 REPORT STATUS: Signed Exam: Head CT without contr ast History: Numbness on left side Comparison studies: None Technique : Axial images were obtained from the skull base to the vertex. Coronal and sagittal images reconstructed from the axial data. Dose modulation, iterative reconstruction, and/or weight based adjustment of the mA/kV was utilized to r educe the radiation dose to as low as reasonably achievable. Radiation dose: Total DLP: 921.4 mGy*cm. Estimated effective dose: DLP x 0.015 In travenous contrast: None Findings: Scalp: No abnormalities. Bones: N o fractures, blastic or lytic lesions. Brain sulci: Appropriate for age. Ventricles: Normal in size and configuration. No hydrocephalus. Extra-axial sp aces: No masses, no fluid collection. Parenchyma: Focal loss of carbajal-wh ite differentiation along the right precentral gyrus (lateral to the hand knob ) compatible with age-indeterminate nonhemorrhagic infarct. No mass or acute h emorrhage. Sellar/suprasellar region: No abnormalities. Craniocervical ju nction: Patent foramen magnum. No Chiari one malformation. Incidental findi ngs: Atherosclerotic calcifications in the carotid siphons.. IMPRESSION: 1. Age-indeterminate nonhemorrhagic right precentral gyrus infarct, poss ibly acute or subacute in the context of recent left-sided localizing neurolog ic symptoms. Brain MRI may further evaluate. 2. No other acute intracranial abnormalities. Signed by: Dr. Brock Valdez M.D. on 08/31/2019 9:13 AM Dictated By: BROCK VALDEZ MD 2 Transcribed By: DESMOND on 08/31/19912 COPY TO: LAZARO HAYES MD Prothrombin time (PT) in platelet poor plasma by coagulation ntpaa1248-06-83 08:36:00* Test Item Value Reference Range Interpretation Comments Prothrombin Time (test code = 5902-2) 11.9 11.9-14.5 [facility] Platelet poor plasma by Coagulation nzrhv4919-74-63 08:36:00* Test Item Value Reference Range Interpretation Comments Prothromb Time International Ratio (test code = 6301-6) 0.83 Oral Anticoagulant Therapy INR Values:1. Low Intensity Therapy 1.5 - 2.02 . Moderate Intensity Therapy 2.0 - 3.03. High Intensity Therapy(1) 2.5 - 3. 54. High Intensity Therapy(2) 3.0 - 4.05. Panic Value INR > 5.0 [facility] CenterActivated partial thromboplastin time (aPTT) in platelet poor plasma by coagulation idrhu6612-84-41 08:36:00* Test Item Value Reference Range Interpretation Comments Activated Partial Thromboplast Time (test code = 01751-3) 26.1 23.8-35.5 [facility]
== END 2019-09-01 15:45 | disposition home or self-care (01) ==
LOC: ER 08:14 → ERHOLD 10:13 → MED/SURG 12:38
PROVIDERS: ADMIT Internal Medicine; ATTEND Internal Medicine
DX: I63.9 Cerebral infarction, unspecified (principal); H53.47 Heteronymous bilateral field defects; G81.94 Hemiplegia, unspecified affecting left nondominant side; G43.909 Migraine, unspecified, not intractable, without status migrainosus; E78.00 Pure hypercholesterolemia, unspecified; Z11.59 Encounter for screening for other viral diseases; Z90.49 Acquired absence of other specified parts of digestive tract; F17.210 Nicotine dependence, cigarettes, uncomplicated; R20.0 Anesthesia of skin; I10 Essential (primary) hypertension
CPT/HCPCS: 36415; 70450; 70496; 70498; 70551; 71045; 80053 ×2; 80061; 82550 ×2; 82553 ×2; 84484 ×2; 85025 ×2; 85610; 85730; 93005; 93306; 93880; 97161; 99284; G0378 ×2; J7030; J7050; Q9967; U0002

== ENCOUNTER 2021-10-11 12:03 | Emergency (ER) | payer MEDICARE, OTHER ==
[~2021-10-11] VITALS: Ht 167.6 cm; Wt 68.9 kg
[~2021-10-11 12:03] MED LIST: ASPIRIN ENTERI325 MG PO; BOTOX100 UNIT; LIPITOR20 MG PO
[2021-10-11] MEDS ORDERED: SODIUM CHLORIDE 0.9% 1000ML 1,000 ML IV STA (12:40)
[2021-10-11] MEDS ORDERED: DEXAMETHASONE SOD PHOS 10 MG/1 ML VIAL IV ONE (12:45)
[2021-10-11] MEDS ORDERED: MECLIZINE HCL 12.5 MG TAB PO ONE (12:45)
[2021-10-11] MEDS ORDERED: METOCLOPRAMIDE HCL 10 MG/2ML VIAL IV ONE (12:45)
[2021-10-11 13:03] LABS: BASOPHILS # (AUTO) 0.1 (0.0-0.1); BASOPHILS % 0.8 % (0.0-1.0); EOSINOPHILS # (AUTO) 0.2 (0.0-0.4); EOSINOPHILS % 2.4 % (0.0-6.0); HEMATOCRIT 41.3 % (34.2-44.1); HEMOGLOBIN 13.7 g/dL (12.0-16.0); LYMPHOCYTES # (AUTO) 1.5 (1.0-3.2); LYMPHOCYTES % 22.7 % (18.0-39.1); MEAN CORPUSCULAR HEMOGLOBIN 31.6 pg (28-32); MEAN CORPUSCULAR HGB CONC 33.2 g/dL (31-35); MEAN CORPUSCULAR VOLUME 95.2 fL (81-99); MONOCYTES # (AUTO) 0.5 (0.2-0.8); MONOCYTES % 7.4 % (4.4-11.3); NEUTROPHILS # (AUTO) 4.4 (2.1-6.9); NEUTROPHILS % 66.4 % (38.7-80.0); PLATELET COUNT 283 x10e3/uL (140-360); RED BLOOD COUNT 4.34 x10e6/uL (3.6-5.1); RED CELL DISTRIBUTION WIDTH 12.9 % (11.7-14.4)
[2021-10-11 13:21] LABS: INR 0.87; PROTHROMBIN TIME 12.7 seconds (11.9-14.5)
[2021-10-11 13:22] LABS: PARTIAL THROMBOPLASTIN TIME 26.3 seconds (23.8-35.5)
[2021-10-11 13:31] LABS: ALANINE AMINOTRANSFERASE 23 IU/L (0-55); ALBUMIN 3.8 g/dL (3.5-5.0); ALBUMIN/GLOBULIN RATIO 0.9 (0.8-2.0); ALKALINE PHOSPHATASE 103 IU/L (40-150); ANION GAP 11.5 mmol/L (8-16); BLOOD UREA NITROGEN 5 mg/dL (7-26); BUN/CREATININE RATIO 7 (6-25); CALCIUM 9.8 mg/dL (8.4-10.2); CARBON DIOXIDE 27 mmol/L (22-29); CHLORIDE 108 mmol/L (98-107); CREATINE KINASE 101 IU/L (29-168); CREATININE, SERUM 0.74 mg/dL (0.57-1.11); GLUCOSE 97 mg/dL (74-118); POTASSIUM 3.5 mmol/L (3.5-5.1); SODIUM 143 mmol/L (136-145)
[2021-10-11] MEDS ORDERED: KETOROLAC TROMETHAMINE 30 MG/ML VIAL IV STA (13:51)
[2021-10-11 14:24] LABS: CLARITY,URINE CLEAR (CLEAR); COLOR,URINE YELLOW (YELLOW); KETONES,URINE NEGATIVE (NEGATIVE); LEUKOCYTE ESTERASE ,URINE NEGATIVE (NEGATIVE); NITRITE,URINE NEGATIVE (NEGATIVE); PROTEIN,URINE DIPSTICK NEGATIVE (NEGATIVE); URINE UROBILINOGEN 0.2 mg/dL (0.2 - 1)
[2021-10-11 14:41] LABS: BACTERIA,URINE FEW /HPF; EPITHELIAL CELLS,URINE MODERATE /LPF
[2021-10-11 14:56] VITALS: BP 113/73
== END 2021-10-11 15:00 | disposition home or self-care (01) ==
LOC: ER 12:15
DX: R42 Dizziness and giddiness (principal); G43.909 Migraine, unspecified, not intractable, without status migrainosus; I25.2 Old myocardial infarction; Z86.73 Personal history of transient ischemic attack (TIA), and cerebral infarction without residual deficits
CPT/HCPCS: 36415; 70450; 71046; 80053; 81001; 82550; 82553; 84484; 85025; 85610; 85730; 93005; 99284; J1100; J1885; J2765; J7030; J8597

== ENCOUNTER 2024-11-19 15:51 | Emergency (ER) | payer MEDICARE ==
[~2024-11-19] VITALS: Ht 167.6 cm; Wt 55.8 kg
[2024-11-19 17:31] LABS: BASOPHILS % 0.4 % (0.0-1.0); EOSINOPHILS % 0.9 % (0.0-6.0); LYMPHOCYTES % 29.8 % (18.0-39.1); MONOCYTES % 4.8 % (4.4-11.3); NEUTROPHILS % 63.9 % (38.7-80.0); RED CELL DISTRIBUTION WIDTH 14.9 % (11.7-14.4)
[2024-11-19 17:34] VITALS: TEMP 98
[2024-11-19 17:45] LABS: EST GLOMERULAR FILTRATION RATE 64.0 ML/MIN (>=60)
[2024-11-19] MEDS: SODIUM CHLORIDE 0.9% 1000ML 1,000 ML IV STA ×2 (18:30)
[2024-11-19] MEDS: DIPHENHYDRAMINE HCL INJ 50 MG/ML VIAL IV ONE (18:32)
[2024-11-19 18:38] LABS: INR 0.96
[2024-11-19] MEDS ORDERED: IOPAMIDOL 370 MG/ML 100 ML INFUS..BTL INJ ONE (18:42)
[2024-11-19] MEDS: PROMETHAZINE 25MG/ NS 50ML (IV) IV ONE (19:11)
[2024-11-19 22:54] LABS: LEUKOCYTE ESTERASE ,URINE 1+ (NEGATIVE); PROTEIN,URINE DIPSTICK 1+ (NEGATIVE); URINE UROBILINOGEN 0.2 mg/dL (0.2 - 1)
[2024-11-19 23:03] LABS: EPITHELIAL CELLS,URINE MANY /LPF; WBC,URINE (MAN) >50 /HPF (0-5)
[2024-11-19 23:30] VITALS: PULSE 73; RESP 20
[2024-11-20 00:39] VITALS: BP 134/62; PULSE 79; RESP 16; O2SAT 100
[2024-11-20] MEDS ORDERED: REGLAN10 MG PO (00:39)
[2024-11-20] MEDS ORDERED: CEFPODOXIME PR200 MG PO (00:39)
== END 2024-11-20 00:49 | disposition home or self-care (01) ==
LOC: ER 18:21
DX: R11.2 Nausea with vomiting, unspecified (principal); C56.9 Malignant neoplasm of unspecified ovary; N39.0 Urinary tract infection, site not specified; I48.91 Unspecified atrial fibrillation; Z86.73 Personal history of transient ischemic attack (TIA), and cerebral infarction without residual deficits; I25.2 Old myocardial infarction
CPT/HCPCS: 36415; 71045; 74177; 80053; 81001; 83690; 83735; 84484; 85025; 85610; 85730; 93005; 99284; J1200; J2470; J2550; J7030; Q9967